=== PATIENT | female | born 1945 | race Caucasian/White ===

== ENCOUNTER 2016-08-20 14:07 | Inpatient (IN) | payer MEDICAID ==
[~2016-08-20 14:07] MED LIST: ALAVERT10 MG; ALBAFORT325 ( 65 ); ANTIVERT12.5 MG; ASPIRIN EC LOW81 MG; ATARAX25 MG; BENICAR20 MG; CALCIUM CARBON600 MG; CALCIUM600 MG; CATAFLAM50 MG; DENAVIR1.5 GM; DICLOFENAC SODI50 MG; EQL FISH OIL 1,1 CAP; ESTRACE1 MG; ESTRACE2 MG; ESTRADIOL1 MG; FAMOTIDINE20 MG; FERROUS SU325 ( 65 ); FISH OIL 1,0001 CA1; LIPITOR40 MG; LORATADINE10 MG; LORTAB 5/500 TA1 TAB PO; MECLIZINE HCL12.5 MG; MUCINEX600 MG PO; MULTIVITAMIN1 CAP; NITROGLYCERIN0.4 MG; NITROQUICK0.4 MG; PEPCID20 MG; PROPOXY-N-APAP1 TAB; RISPERDAL1 MG; RISPERDAL2 MG; TESSALON200 MG PO; TOPROL XL50 MG; TRICOR48 M1; ULTRAM50 MG PO; VASELINE; ZANTAC15; ZESTRIL20 MG; ZOLOFT100 MG; ZOLOFT50 MG
[2016-08-20] MEDS ORDERED: DICLOFENAC SODI75 M2 PO (14:10)
[2016-08-20] MEDS ORDERED: PEPCID20 M1 PO (14:11)
[2016-08-20] MEDS ORDERED: ZOLOFT100 M1 PO (14:11)
[2016-08-20] MEDS ORDERED: LIDODERM1 EACH PO (14:11)
[2016-08-20] MEDS ORDERED: NYSTOP60 GM EXT (14:11)
[2016-08-20] MEDS ORDERED: CALCIUM CARBON600 M2 PO (14:12)
[2016-08-20] MEDS ORDERED: FISH OIL 11000 MG/CA PO (14:12)
[2016-08-20] MEDS ORDERED: PAIN RELIEF500 M4 PO (14:12)
[2016-08-20] MEDS ORDERED: ESTRADIOL0.5 M2 PO (14:13)
[2016-08-20] MEDS ORDERED: FEOSOL325 M1 PO (14:13)
[2016-08-20] MEDS ORDERED: RISPERDAL4 M1 PO (14:13)
[2016-08-20] MEDS ORDERED: TOPROL XL100 M1 PO (14:13)
[2016-08-20] MEDS ORDERED: LISINOPRIL20 M1 PO (14:13)
[2016-08-20] MEDS ORDERED: ANTI-ITCH28 GM TP (14:14)
[2016-08-20] MEDS ORDERED: TAB-A-VITE1 EAC1 PO (14:14)
[2016-08-20 15:17] LABS: URINE APPEARANCE HAZY; URINE BILIRUBIN NEGATIVE (NEG); URINE BLOOD SMALL (NEG); URINE COLOR YELLOW; URINE GLUCOSE (UA) NEGATIVE (NEG); URINE KETONE NEGATIVE (NEG); URINE LEUKOCYTE ESTERASE NEGATIVE (NEG); URINE NITRITE NEGATIVE (NEG); URINE PROTEIN MODERATE (NEG)
[2016-08-20 15:19] LABS: BASO % 0.2 % (0-2); EOS % 1.2 % (0-7); EOSINOPHIL ABSOLUTE COUNT 0.1 tho/cmm (0.0-0.7); HCT-HEMATOCRIT 42.3 % (34.0-49.0); HGB-HEMOGLOBIN 14.2 gm/dl (12.0-15.5); LYMPH % 8.5 % (20-45); LYMPH ABSOLUTE COUNT 0.9 tho/cmm (0.8-4.5); MCH (MEAN CORPUSCULAR HGB) 30.1 pg (28.0-32.0); MCHC MEAN CORPUSCULAR HGB CONC 33.6 % (32.0-36.0); MCV (MEAN CELL VOLUME) 89.8 fl (82.0-96.0); MEAN PLATELET VOLUME 10.7 cmc (9.4-12.4); MONO % 7.8 % (0-12); MONOCYTE ABSOLUTE COUNT 0.8 tho/cmm (0.0-1.2); NEUTROPHIL ABSOLUTE COUNT 8.5 tho/cmm (1.6-8.0); NEUTROPHIL-AUTOMATED 8.5 tho/cmm (1.6-8.0); NEUTROPHILS % 82.3 % (40-80); PLATELET COUNT 313 tho/cmm (150-450); RED BLOOD COUNT 4.71 mil/cmm (4.00-5.20); RED CELL DISTRIBUTION WIDTH 15.1 % (12.4-16.4); WHITE BLOOD COUNT 10.4 tho/cmm (4.0-10.0)
[2016-08-20 15:24] LABS: ANION GAP 11 mmol/L (0-20); BLOOD UREA NITROGEN 19 mg/dl (6-24); CALCIUM 8.4 mg/dl (8.5-10.5); CARBON DIOXIDE-VENOUS 26 mmol/L (22-32); CHLORIDE 107 mmol/l (96-110); CREATININE 1.15 mg/dl (0.50-1.10); GLUCOSE 125 mg/dL (70-110); POTASSIUM 3.9 mmol/L (3.7-5.1); SODIUM 140 mmol/L (135-145); eGFR VALUE FOR BLACK 55 mL/Min
[2016-08-20 15:42] LABS: URINE EPITHELIAL CELLS 0-1 /[HPF] (0-10); URINE RBC 0-1 /[HPF] (0-5); URINE WBC 0-3 /[HPF] (0-5)
[2016-08-20] MEDS ORDERED: MECLIZINE HCL12.5 M3 PO (16:12)
[2016-08-20] MEDS ORDERED: IMODIUM A-D2 M4 PO (16:14)
[2016-08-20] MEDS ORDERED: TRIPLE ANTIBIO1 EAC1 TOP (16:14)
[2016-08-20] MEDS ORDERED: ECONAZOLE NITRA15 GM TOP (16:15)
[2016-08-20] MEDS ORDERED: OFLOXACIN5 M3 EACH EYE (16:16)
[2016-08-20] MEDS ORDERED: MUPIROCIN22 G2 TOP (16:17)
[2016-08-20] MEDS ORDERED: NEOSPORIN OINT1 EACH TOP (16:19)
[2016-08-21 05:39] LABS: BASO % 0.1 % (0-2); EOS % 1.9 % (0-7); EOSINOPHIL ABSOLUTE COUNT 0.2 tho/cmm (0.0-0.7); HCT-HEMATOCRIT 40.7 % (34.0-49.0); HGB-HEMOGLOBIN 13.7 gm/dl (12.0-15.5); IMMATURE GRANULOCYTES ABSOLUTE 0.03 tho/cmm (0-0.03); IMMATURE GRANULOCYTES PERCENT 0.3 % (0-0.3); LYMPH % 14.2 % (20-45); LYMPH ABSOLUTE COUNT 1.3 tho/cmm (0.8-4.5); MCH (MEAN CORPUSCULAR HGB) 30.2 pg (28.0-32.0); MCHC MEAN CORPUSCULAR HGB CONC 33.7 % (32.0-36.0); MCV (MEAN CELL VOLUME) 89.8 fl (82.0-96.0); MEAN PLATELET VOLUME 10.5 cmc (9.4-12.4); MONO % 8.4 % (0-12); MONOCYTE ABSOLUTE COUNT 0.7 tho/cmm (0.0-1.2); NEUTROPHIL ABSOLUTE COUNT 6.6 tho/cmm (1.6-8.0); NEUTROPHIL-AUTOMATED 6.6 tho/cmm (1.6-8.0); NEUTROPHILS % 75.1 % (40-80); PLATELET COUNT 312 tho/cmm (150-450); RED BLOOD COUNT 4.53 mil/cmm (4.00-5.20); RED CELL DISTRIBUTION WIDTH 15.3 % (12.4-16.4); WHITE BLOOD COUNT 8.8 tho/cmm (4.0-10.0)
[2016-08-21 05:53] LABS: ANION GAP 11 mmol/L (0-20); BLOOD UREA NITROGEN 22 mg/dl (6-24); CALCIUM 9.4 mg/dl (8.5-10.5); CARBON DIOXIDE-VENOUS 26 mmol/L (22-32); CHLORIDE 107 mmol/l (96-110); CREATININE 1.03 mg/dl (0.50-1.10); GLUCOSE 102 mg/dL (70-110); SODIUM 140 mmol/L (135-145); eGFR VALUE FOR BLACK 63 mL/Min
[2016-08-21] MEDS ORDERED: PLAVIX75 M1 PO (09:55)
[2016-08-21] MEDS ORDERED: LIPITOR40 M1 PO (09:56)
[2016-08-21] MEDS ORDERED: SINEMET 25-1001 EAC1 PO (09:57)
[2016-08-21 17:57] LABS: TSH-THYROID STIMULATING HORM. 1.71 uIU/ml (0.40-3.80)
[2016-08-22 12:26] LABS: BASO % 0.2 % (0-2); EOS % 1.7 % (0-7); EOSINOPHIL ABSOLUTE COUNT 0.2 tho/cmm (0.0-0.7); HCT-HEMATOCRIT 43.2 % (34.0-49.0); HGB-HEMOGLOBIN 14.7 gm/dl (12.0-15.5); IMMATURE GRANULOCYTES ABSOLUTE 0.02 tho/cmm (0-0.03); IMMATURE GRANULOCYTES PERCENT 0.2 % (0-0.3); LYMPH % 11.6 % (20-45); LYMPH ABSOLUTE COUNT 1.2 tho/cmm (0.8-4.5); MCH (MEAN CORPUSCULAR HGB) 30.6 pg (28.0-32.0); MEAN PLATELET VOLUME 10.5 cmc (9.4-12.4); MONO % 7.3 % (0-12); MONOCYTE ABSOLUTE COUNT 0.8 tho/cmm (0.0-1.2); NEUTROPHIL ABSOLUTE COUNT 8.2 tho/cmm (1.6-8.0); NEUTROPHIL-AUTOMATED 8.2 tho/cmm (1.6-8.0); PLATELET COUNT 352 tho/cmm (150-450); RED CELL DISTRIBUTION WIDTH 15.1 % (12.4-16.4); WHITE BLOOD COUNT 10.4 tho/cmm (4.0-10.0)
[2016-08-22 12:45] LABS: ANION GAP 12 mmol/L (0-20); BLOOD UREA NITROGEN 21 mg/dl (6-24); CALCIUM 8.9 mg/dl (8.5-10.5); CARBON DIOXIDE-VENOUS 27 mmol/L (22-32); CHLORIDE 105 mmol/l (96-110); CHOLESTEROL 248 mg/dl (120-200); GLUCOSE 113 mg/dL (70-110); HDL CHOLESTEROL 37 mg/dl (40-60); LDL CHOLESTEROL 160 mg/dl (0-99); MAGNESIUM 2.4 mg/dl (1.3-2.6); POTASSIUM 4.2 mmol/L (3.7-5.1); SODIUM 140 mmol/L (135-145); VLDL 52 mg/dl (0-30); eGFR VALUE FOR BLACK 74 mL/Min
[2016-08-22 13:18] LABS: TRIGLYCERIDES 259 mg/dl (<149)
[2016-08-23 05:29] LABS: BASO % 0.1 % (0-2); EOS % 2.2 % (0-7); EOSINOPHIL ABSOLUTE COUNT 0.2 tho/cmm (0.0-0.7); HCT-HEMATOCRIT 41.2 % (34.0-49.0); HGB-HEMOGLOBIN 14.1 gm/dl (12.0-15.5); IMMATURE GRANULOCYTES ABSOLUTE 0.03 tho/cmm (0-0.03); IMMATURE GRANULOCYTES PERCENT 0.3 % (0-0.3); LYMPH % 12.7 % (20-45); LYMPH ABSOLUTE COUNT 1.2 tho/cmm (0.8-4.5); MCH (MEAN CORPUSCULAR HGB) 30.5 pg (28.0-32.0); MCHC MEAN CORPUSCULAR HGB CONC 34.2 % (32.0-36.0); MCV (MEAN CELL VOLUME) 89.2 fl (82.0-96.0); MEAN PLATELET VOLUME 10.4 cmc (9.4-12.4); MONO % 7.9 % (0-12); MONOCYTE ABSOLUTE COUNT 0.8 tho/cmm (0.0-1.2); NEUTROPHIL ABSOLUTE COUNT 7.4 tho/cmm (1.6-8.0); NEUTROPHIL-AUTOMATED 7.4 tho/cmm (1.6-8.0); NEUTROPHILS % 76.8 % (40-80); PLATELET COUNT 343 tho/cmm (150-450); RED BLOOD COUNT 4.62 mil/cmm (4.00-5.20); RED CELL DISTRIBUTION WIDTH 14.9 % (12.4-16.4); WHITE BLOOD COUNT 9.7 tho/cmm (4.0-10.0)
[2016-08-23 05:53] LABS: ANION GAP 11 mmol/L (0-20); BLOOD UREA NITROGEN 18 mg/dl (6-24); CALCIUM 8.7 mg/dl (8.5-10.5); CARBON DIOXIDE-VENOUS 27 mmol/L (22-32); CHLORIDE 105 mmol/l (96-110); CREATININE 0.82 mg/dl (0.50-1.10); GLUCOSE 111 mg/dL (70-110); POTASSIUM 3.9 mmol/L (3.7-5.1); SODIUM 139 mmol/L (135-145); eGFR VALUE FOR BLACK 83 mL/Min
== END 2016-08-25 13:02 | disposition swing bed (61) | DRG 65 ==
LOC: EDMED 14:07 → EMR2 18:12 → CAR1 21:40 → 5EB 08-21 17:20
PROVIDERS: Emergency Medicine; Internal Medicine Cardiovascular Disease; Psychiatry & Neurology Neurology; ADMIT Hospitalist
DX: I63.9 Cerebral infarction, unspecified (principal); J98.11 Atelectasis; G25.89 Other specified extrapyramidal and movement disorders; I10 Essential (primary) hypertension; F32.9 Major depressive disorder, single episode, unspecified; S01.81XA Laceration without foreign body of other part of head, initial encounter; S42.302A Unspecified fracture of shaft of humerus, left arm, initial encounter for closed fracture; F41.9 Anxiety disorder, unspecified; M81.0 Age-related osteoporosis without current pathological fracture; E78.5 Hyperlipidemia, unspecified; Z91.81 History of falling; I95.1 Orthostatic hypotension; W17.89XA Other fall from one level to another, initial encounter; Y92.129 Unspecified place in nursing home as the place of occurrence of the external cause
CPT/HCPCS: A9577; G8978-GP-CK; G8979-GP-CJ; G8987-GO-CK; G8988-GO-CJ; G8996-GN-CJ; G8997-GN-CI; G8998-GN-CJ; G8999-GN-CJ; G9158-GN-CJ; G9186-GN-CJ; P9612